=== PATIENT | male | born 1975 | race Caucasian/White ===

== ENCOUNTER 2018-09-05 20:48 | Emergency (ER) | payer OTHER ==
--- NOTE | 2018-09-05 20:58 | PDOC ---
Rapid Medical Evaluation Time Seen by Provider: 09/05/18 20:56 Medical Evaluation: Allergies Allergy/AdvReac Type Severity Reaction Status Date / Time No Known Allergies Allergy Verified 12/30/15 07:59 09/05/18 20:57 I have performed a brief in-person evaluation of this patient. The patient presents with a chief complaint of:Abscess L wrist from splinter Pertinent physical exam findings: erythema, induration and warmth radial aspect of L wrist with obvious mass I have ordered the following:x-ray The patient will proceed to the ED for further evaluation. Discharge Disposition - Diagnosis Abscess - Referrals Referrals: Crispin Powell MD [Primary Care Provider] - - Patient Instructions - Post Discharge Activity
[2018-09-05 21:01] VITALS: BP 137/98; PULSE 84; TEMP 97.6; BMI 30.3
[2018-09-05] MEDS ORDERED: CEPHALEXIN MONOHYDRATE 500 MG CAPSULE (UD) PO ONE (22:14)
[2018-09-05] MEDS ORDERED: SULFAMETHOXAZOLE/TRIMETHOPRIM 800MG/160MG D.S. TABLET PO ONE (22:14)
--- NOTE | 2018-09-05 22:15 | PDOC ---
History of Present Illness - General Chief Complaint: Abscess Boil Stated Complaint: ABSCESS BOIL Time Seen by Provider: 09/05/18 20:56 History Source: Patient Exam Limitations: No Limitations Past History - Travel Traveled outside of the country in the last 30 days: No Close contact w/someone who was outside of country & ill: No - Past Medical History Allergies/Adverse Reactions: Allergies Allergy/AdvReac Type Severity Reaction Status Date / Time No Known Allergies Allergy Verified 12/30/15 07:59 Home Medications: Ambulatory Orders Cephalexin Monohydrate [Keflex -] 500 mg PO BID #14 capsule 09/05/18 Sulfamethoxazole/Trimethoprim [Bactrim Ds -] 1 tab PO BID #14 tablet 09/05/18 COPD: No - Suicide/Smoking/Psychosocial Hx Smoking History: Unknown if ever smoked Information on smoking cessation initiated: No Hx Alcohol Use: No Drug/Substance Use Hx: No Review of Systems - Review of Systems Able to Perform ROS?: Yes Comments:: 09/05/18 23:32 CONSTITUTIONAL: Absent: fever, chills, diaphoresis, generalized weakness, malaise, loss of appetite HEENT: Absent: rhinorrhea, nasal congestion, throat pain, throat swelling, difficulty swallowing, mouth swelling, ear pain, eye pain, visual Changes CARDIOVASCULAR: Absent: chest pain, loss of consciousness, palpitations, irregular heart rate, peripheral edema RESPIRATORY: Absent: cough, shortness of breath, dyspnea with exertion, orthopnea, wheezing, stridor, hemoptysis GASTROINTESTINAL: Absent: abdominal pain, abdominal distension, nausea, vomiting, diarrhea, constipation, melena, hematochezia GENITOURINARY: Absent: dysuria, frequency, urgency, hesitancy, hematuria, flank pain, genital pain MUSCULOSKELETAL: Absent: myalgia, arthralgia, joint swelling SKIN: Present: swelling and redness to the L medial wrist. Absent: itching, pallor NEUROLOGIC: Absent: headache, focal weakness or paresthesias, dizziness, unsteady gait, seizure, mental status changes, bladder or bowel incontinence PSYCHIATRIC: Absent: anxiety, depression, suicidal or homicidal ideation, hallucinations. Is the patient limited [place] proficient: No *Physical Exam - Vital Signs Last Vital Signs Temp Pulse Resp BP Pulse Ox 97.6 F 84 20 137/98 96 09/05/18 20:57 09/05/18 20:57 09/05/18 20:57 09/05/18 20:57 09/05/18 20:57 - Physical Exam Comments: 09/05/18 23:32 GENERAL: Well developed, well nourished. Awake and alert. No acute distress. MUSCULOSKELETAL Normal range of motion at all joints. No bony deformities or tenderness. No CVA tenderness. EXTREMITIES: No cyanosis. No clubbing. No edema. No calf tenderness. SKIN: [id number] hard indurated area with no fluctuance and associated redness.Warm and dry. Normal capillary refill. No rashes. No jaundice. NEUROLOGICAL: Alert, awake, appropriate. Cranial nerves 2-12 intact. No deficits to light touch and temperature in face, upper extremities and lower extremities. No motor deficits in the in face, upper extremities and lower extremities. Normoreflexic in the upper and lower extremities. Normal speech. Toes are down- going bilaterally. Gait is normal without ataxia. PSYCHIATRIC: Cooperative. Good eye contact. Appropriate mood and affect. Moderate Sedation - Procedure Monitoring Vital Signs: Procedure Monitoring Vital Signs Temperature 97.6 F 09/05/18 20:57 Pulse Rate 84 09/05/18 20:57 Respiratory Rate 20 09/05/18 20:57 Blood Pressure 137/98 09/05/18 20:57 O2 Sat by Pulse Oximetry (%) 96 09/05/18 20:57 Medical Decision Making - Medical Decision Making 09/05/18 23:33 The patient is a 43-year-old male with no past medical history who presents to the ER with a abscess to his left medial wrist. Patient states he believes he got a splinter in there approximately 3-4 days ago. He believes he removed the splinter at the time of the incident, however he has noticed increased pain and swelling to the area. He has not tried taking any medication for his symptoms. He states that the area is painful. Patient is a left-hand dominant. A/P: Cellulitis Patient with a 4 cm x 2 cm x 3 cm hard area of induration with no fluctuance. X-ray obtained from [facility] show soft tissue swelling to the left wrist without gas or foreign body noted. Will start the patient on antibiotics and warm compresses to help bring the infection to a head. First dose of Bactrim and Keflex given in the ER. Instructed patient to return in 2 days for wound check. I discussed the physical exam findings, ancillary test results and final diagnoses with the patient. I answered all of the patient's questions. The patient was satisfied with the care received and felt comfortable with the discharge plan and treatment plan. The Patient agrees to follow up with the primary care physician/specialist within 24-72 hours. Return precautions were given. *DC/Admit/Observation/Transfer Diagnosis at time of Disposition: Abscess Cellulitis Qualifiers: Site of cellulitis: extremity Site of cellulitis of extremity: upper extremity Laterality: left Qualified Code(s): L03.114 - Cellulitis of left upper limb - Discharge Dispostion Disposition: HOME Condition at time of disposition: Stable Decision to Admit order: No - Prescriptions Prescriptions: Cephalexin Monohydrate [Keflex -] 500 mg PO BID #14 capsule Sulfamethoxazole/Trimethoprim [Bactrim Ds -] 1 tab PO BID #14 tablet - Referrals Referrals: Crispin Powell MD [Primary Care Provider] - - Patient Instructions Printed Discharge Instructions: DI for Skin Abscess Additional Instructions: You have cellulitis. This is a skin infection. Please take the Bactrim and Keflex twice a day for one week. Please take all the antibiotics even if you feel better. You may use warm water soaks to the area. Please do this approximately 4-5 times a day. Please avoid shaving the skin around the area of redness. You may take Tylenol or Motrin as needed for pain. Return in two days to have the wrist check. I anticipate it will need to be drained. Return to the emergency department if you have worsening redness, fevers, increasing pain, or have any changes in your symptoms. - Post Discharge Activity
[2018-09-05] MEDS ORDERED: SULFAMETHOXAZOLE/TRIMETHOPRIM 800MG/160MG D.S. TABLET ONE (22:20)
[2018-09-05] MEDS ORDERED: CEPHALEXIN MONOHYDRATE 500 MG CAPSULE (UD) ONE (22:21)
== END 2018-09-05 22:22 | disposition home or self-care (01) ==
LOC: JERFT 20:48
DX: L03.114 Cellulitis of left upper limb (principal)
CPT/HCPCS: 73110-TC-LT-FY; 73130-TC-LT-FY; 99281-25

== ENCOUNTER 2021-01-30 23:23 | Inpatient (IN) | payer OTHER ==
[2021-01-31] MEDS ORDERED: DEXAMETHASONE SOD PHOSPHATE 4 MG/1 ML VIAL IVPUSH ONE (00:14)
[2021-01-31] MEDS ORDERED: DEXAMETHASONE SOD PHOSPHATE 4 MG/1 ML VIAL ONE (00:40)
[2021-01-31 01:06] LABS: BASO % 0.1 % (0-2.0); EOS % 0.4 % (0-4.5); HEMOGLOBIN 14.3 GM/dL (11.7-16.9); LYMPH % 27.8 % (8-40); MCH 31.6 pg (25.7-33.7); MCHC 34.8 g/dl (32.0-35.9); MEAN CELL VOLUME 90.8 fl (80-96); MEAN PLT VOLUME 8.2 fl (7.5-11.1); MONO % 8.5 % (3.8-10.2); NEUT % 63.2 % (42.8-82.8); PLATELET COUNT 163 10^3/uL (134-434); RBC 4.52 M/mm3 (4.00-5.60); RDW 14.8 % (11.9-15.9); WHITE BLOOD COUNT 6.2 K/mm3 (4.0-10.0)
[2021-01-31 01:15] LABS: INR 1.17 (0.83-1.09); PROTHROMBIN TIME (PATIENT) 14.1 SEC (9.7-13.0)
[2021-01-31 01:17] LABS: ACTIVATED PTT 31.9 SECONDS (25.2-36.5)
[2021-01-31 01:23] LABS: CHLORIDE 102 mmol/L (98-107); SODIUM 136 mmol/L (136-145)
[2021-01-31 01:25] LABS: CALCIUM 7.9 mg/dL (8.5-10.1)
[2021-01-31 01:26] LABS: ALBUMIN 3.7 g/dl (3.4-5.0); ANION GAP 6 MMOL/L (8-16); BLOOD UREA NITROGEN 13.4 mg/dL (7-18); CO2 28 mmol/L (21-32); GLUCOSE,RANDOM 106 mg/dL (74-106)
[2021-01-31 01:28] LABS: BILIRUBIN,DIRECT 0.3 mg/dL (0.0-0.2)
[2021-01-31 01:29] LABS: SGOT/AST 147 U/L (15-37); SGPT/ALT 229 U/L (13-61)
[2021-01-31 01:30] LABS: BILIRUBIN,TOTAL 0.8 mg/dL (0.2-1); LDH 365 U/L (87-246)
[2021-01-31 01:31] LABS: TOT PROT 7.8 g/dl (6.4-8.2)
[2021-01-31 01:32] LABS: ALK PHOS 97 U/L (45-117)
[2021-01-31 06:45] LABS: EPI CELLS 10 /uL (0-25.1); HYALINE CASTS 1 /uL (0-3.1); PH,URINE 5.5 (5.0-8.0); URINE APPEARANCE CLEAR; URINE BACTERIA 9 /uL (0-1359); URINE BILIRUBIN 1+ (NEGATIVE); URINE COLOR DK YELLOW; URINE GLUCOSE (UA) NEGATIVE (NEGATIVE); URINE KETONE TRACE (NEGATIVE); URINE LEUK ESTERASE NEGATIVE (NEGATIVE); URINE NITRITE NEGATIVE (NEGATIVE); URINE PROTEIN 1+ (NEGATIVE); URINE RBC 4 /uL (0-23.9); URINE WBC 12 /uL (0-25.8)
[2021-01-31 06:56] LABS: HEMATOCRIT 41.4 % (35.4-49); HEMOGLOBIN 14.5 GM/dL (11.7-16.9); MCH 31.9 pg (25.7-33.7); MEAN CELL VOLUME 91.3 fl (80-96); MEAN PLT VOLUME 8.4 fl (7.5-11.1); PLATELET COUNT 169 10^3/uL (134-434); RBC 4.54 M/mm3 (4.00-5.60); RDW 14.7 % (11.9-15.9); WHITE BLOOD COUNT 5.3 K/mm3 (4.0-10.0)
[2021-01-31 06:56] LABS: VENOUS BASE EXCESS -12.8 mmol/L (-2-2); VENOUS O2 SATURATION 94.2 % (70-80); VENOUS PCO2 64.3 mmHg (38-52)
[2021-01-31 06:58] LABS: VENOUS PH 7.07 (7.310-7.410)
[2021-01-31 07:21] LABS: ALBUMIN 3.6 g/dl (3.4-5.0); CALCIUM 8.1 mg/dL (8.5-10.1)
[2021-01-31 07:22] LABS: BLOOD UREA NITROGEN 14.4 mg/dL (7-18); MAGNESIUM 2.6 mg/dL (1.8-2.4)
[2021-01-31 07:25] LABS: CREATININE 0.9 mg/dL (0.55-1.3); PHOSPHOROUS 3.8 mg/dL (2.5-4.9)
[2021-01-31 07:26] LABS: BILIRUBIN,TOTAL 0.8 mg/dL (0.2-1); TOT PROT 7.9 g/dl (6.4-8.2)
[2021-01-31] MEDS ORDERED: FAMOTIDINE 20 MG TABLET ONE (13:59)
[2021-01-31] MEDS ORDERED: DEXAMETHASONE SOD PHOSPHATE 10 MG/1 ML VIAL ONE (13:59)
[2021-01-31] MEDS ORDERED: ASCORBIC ACID 500 MG TABLET (FP) ONE (13:59)
[2021-01-31] MEDS ORDERED: CHOLECALCIFEROL (VIT D3) 1,000 UNIT (25 MCG) TABLET ONE (14:00)
[2021-01-31] MEDS ORDERED: ENOXAPARIN NA (PORCINE) 40 MG/0.4 ML DISP.SYRIN SQ ONE (14:00)
[2021-01-31] MEDS: FAMOTIDINE 20 MG TABLET PO SCH (14:01)
[2021-01-31] MEDS: ASCORBIC ACID 250 MG TABLET (FP) PO SCH ×2 (14:01→22:55)
[2021-01-31] MEDS: ENOXAPARIN NA (PORCINE) 40 MG/0.4 ML DISP.SYRIN SQ SCH (14:01)
[2021-01-31] MEDS: DEXAMETHASONE SOD PHOSPHATE 10 MG/1 ML VIAL IVPUSH SCH (14:01)
[2021-01-31] MEDS: CHOLECALCIFEROL (VIT D3) 5000 UNITS (125 MCG) CAP PO SCH (14:02)
[2021-01-31] MEDS ORDERED: REMDESIVIR 200 MG in SODIUM CHLORIDE 250 ML IVPB ONE (15:00)
[2021-01-31 22:44] VITALS: BMI 29.8
[2021-01-31] MEDS: ALBUTEROL SO4 HFA INHALER IH SCH (22:49)
[2021-01-31] MEDS: BUDESONIDE/FORMETEROL FUMARATE 160/4.5 mcg INHALER IH SCH (22:58)
[2021-01-31] MEDS: guaiFENesin/D-METHORPHAN HB 10 ML UNIT-DOSE CUPS PO PRN (23:05)
[2021-02-01] MEDS ORDERED: PT OWN MED DRAWER 7, Y5N ONE (10:09)
[2021-02-01] MEDS: guaiFENesin/D-METHORPHAN HB 10 ML UNIT-DOSE CUPS PO PRN (10:19)
[2021-02-01] MEDS: ALBUTEROL SO4 HFA INHALER IH SCH ×4 (10:19→20:00)
[2021-02-01] MEDS: FAMOTIDINE 20 MG TABLET PO SCH (10:20)
[2021-02-01] MEDS: CHOLECALCIFEROL (VIT D3) 5000 UNITS (125 MCG) CAP PO SCH (10:20)
[2021-02-01] MEDS: ASCORBIC ACID 250 MG TABLET (FP) PO SCH ×2 (10:20→21:22)
[2021-02-01] MEDS: DEXAMETHASONE SOD PHOSPHATE 10 MG/1 ML VIAL IVPUSH SCH (10:21)
[2021-02-01] MEDS: ENOXAPARIN NA (PORCINE) 40 MG/0.4 ML DISP.SYRIN SQ SCH (10:21)
[2021-02-01 11:26] LABS: BASO % 0.1 % (0-2.0); EOS % 0.1 % (0-4.5); HEMATOCRIT 42.8 % (35.4-49); HEMOGLOBIN 14.9 GM/dL (11.7-16.9); LYMPH % 23.1 % (8-40); MCH 31.7 pg (25.7-33.7); MCHC 34.7 g/dl (32.0-35.9); MEAN CELL VOLUME 91.1 fl (80-96); MEAN PLT VOLUME 8.5 fl (7.5-11.1); NEUT % 70.7 % (42.8-82.8); PLATELET COUNT 227 10^3/uL (134-434); RDW 14.6 % (11.9-15.9); WHITE BLOOD COUNT 12.2 K/mm3 (4.0-10.0)
[2021-02-01] MEDS: BUDESONIDE/FORMETEROL FUMARATE 160/4.5 mcg INHALER IH SCH ×2 (11:49→21:18)
[2021-02-01 11:57] LABS: ALBUMIN 3.8 g/dl (3.4-5.0); BLOOD UREA NITROGEN 16.9 mg/dL (7-18); CALCIUM 8.7 mg/dL (8.5-10.1)
[2021-02-01 11:58] LABS: MAGNESIUM 2.5 mg/dL (1.8-2.4)
[2021-02-01 11:59] LABS: CREATININE 0.9 mg/dL (0.55-1.3)
[2021-02-01 12:00] LABS: BILIRUBIN,DIRECT 0.3 mg/dL (0.0-0.2); PHOSPHOROUS 3.6 mg/dL (2.5-4.9)
[2021-02-01 12:01] LABS: BILIRUBIN,TOTAL 0.7 mg/dL (0.2-1)
[2021-02-01] MEDS ORDERED: ACETAMINOPHEN 325 MG TABLET (FP) PO PRN (12:10)
[2021-02-01 12:11] LABS: ERYTHROCYTE SEDIMENTATION RATE 75 mm/hr (0-10)
[2021-02-01] MEDS: REMDESIVIR 100 MG in SODIUM CHLORIDE 250 ML IVPB SCH (15:09)
[2021-02-01] MEDS: guaiFENesin/CODEINE 10 ML UNIT-DOSE CUPS PO PRN (15:09)
[2021-02-02] MEDS ORDERED: PT OWN MED DRAWER 7, Y5N ONE (10:30)
[2021-02-02] MEDS: ASCORBIC ACID 250 MG TABLET (FP) PO SCH ×2 (10:33→21:07)
[2021-02-02] MEDS: ENOXAPARIN NA (PORCINE) 40 MG/0.4 ML DISP.SYRIN SQ SCH (10:33)
[2021-02-02] MEDS: FAMOTIDINE 20 MG TABLET PO SCH (10:34)
[2021-02-02] MEDS: CHOLECALCIFEROL (VIT D3) 5000 UNITS (125 MCG) CAP PO SCH (10:34)
[2021-02-02] MEDS: BUDESONIDE/FORMETEROL FUMARATE 160/4.5 mcg INHALER IH SCH ×2 (10:35→21:03)
[2021-02-02] MEDS: ALBUTEROL SO4 HFA INHALER IH SCH ×4 (10:35→21:03)
[2021-02-02 10:36] LABS: BASO % 0.1 % (0-2.0); EOS % 0.1 % (0-4.5); HEMATOCRIT 41.3 % (35.4-49); HEMOGLOBIN 14.3 GM/dL (11.7-16.9); LYMPH % 18.6 % (8-40); MCH 31.5 pg (25.7-33.7); MCHC 34.6 g/dl (32.0-35.9); MEAN CELL VOLUME 91.1 fl (80-96); MEAN PLT VOLUME 8.4 fl (7.5-11.1); MONO % 5.1 % (3.8-10.2); NEUT % 76.1 % (42.8-82.8); PLATELET COUNT 234 10^3/uL (134-434); RBC 4.53 M/mm3 (4.00-5.60); RDW 14.3 % (11.9-15.9); WHITE BLOOD COUNT 9.4 K/mm3 (4.0-10.0)
[2021-02-02] MEDS: DEXAMETHASONE SOD PHOSPHATE 10 MG/1 ML VIAL IVPUSH SCH (10:49)
[2021-02-02 10:57] LABS: ALBUMIN 3.3 g/dl (3.4-5.0); CALCIUM 8.1 mg/dL (8.5-10.1); MAGNESIUM 2.5 mg/dL (1.8-2.4)
[2021-02-02] MEDS: guaiFENesin/CODEINE 10 ML UNIT-DOSE CUPS PO PRN ×2 (11:00→21:01)
[2021-02-02 11:01] LABS: PHOSPHOROUS 2.9 mg/dL (2.5-4.9)
[2021-02-02 11:02] LABS: BILIRUBIN,TOTAL 0.6 mg/dL (0.2-1)
[2021-02-02 12:31] LABS: ERYTHROCYTE SEDIMENTATION RATE 44 mm/hr (0-10)
[2021-02-02] MEDS: REMDESIVIR 100 MG in SODIUM CHLORIDE 250 ML IVPB SCH (15:34)
[2021-02-03] MEDS: ALBUTEROL SO4 HFA INHALER IH SCH ×4 (08:45→23:09)
[2021-02-03 09:55] LABS: BASO % 0.1 % (0-2.0); EOS % 0.2 % (0-4.5); HEMATOCRIT 39.1 % (35.4-49); HEMOGLOBIN 13.4 GM/dL (11.7-16.9); MCH 31.1 pg (25.7-33.7); MCHC 34.4 g/dl (32.0-35.9); MEAN CELL VOLUME 90.5 fl (80-96); MEAN PLT VOLUME 7.7 fl (7.5-11.1); MONO % 7.5 % (3.8-10.2); NEUT % 71.2 % (42.8-82.8); PLATELET COUNT 261 10^3/uL (134-434); RBC 4.32 M/mm3 (4.00-5.60); RDW 14.5 % (11.9-15.9); WHITE BLOOD COUNT 9.8 K/mm3 (4.0-10.0)
[2021-02-03 10:19] LABS: CALCIUM 8.2 mg/dL (8.5-10.1)
[2021-02-03 10:20] LABS: ALBUMIN 3.2 g/dl (3.4-5.0); MAGNESIUM 2.7 mg/dL (1.8-2.4)
[2021-02-03 10:23] LABS: PHOSPHOROUS 3.4 mg/dL (2.5-4.9)
[2021-02-03 10:24] LABS: BILIRUBIN,TOTAL 0.6 mg/dL (0.2-1); TOT PROT 7.8 g/dl (6.4-8.2)
[2021-02-03 10:25] LABS: BLOOD UREA NITROGEN 15.3 mg/dL (7-18)
[2021-02-03] MEDS ORDERED: PT OWN MED DRAWER 7, Y5N ONE ×3 (10:33→20:53)
[2021-02-03] MEDS: guaiFENesin/CODEINE 10 ML UNIT-DOSE CUPS PO PRN ×3 (10:43→23:10)
[2021-02-03] MEDS: ENOXAPARIN NA (PORCINE) 40 MG/0.4 ML DISP.SYRIN SQ SCH (10:43)
[2021-02-03] MEDS: FAMOTIDINE 20 MG TABLET PO SCH (10:43)
[2021-02-03] MEDS: ASCORBIC ACID 250 MG TABLET (FP) PO SCH ×2 (10:43→23:19)
[2021-02-03] MEDS: CHOLECALCIFEROL (VIT D3) 5000 UNITS (125 MCG) CAP PO SCH (10:43)
[2021-02-03] MEDS: DEXAMETHASONE SOD PHOSPHATE 10 MG/1 ML VIAL IVPUSH SCH (10:44)
[2021-02-03] MEDS: BUDESONIDE/FORMETEROL FUMARATE 160/4.5 mcg INHALER IH SCH ×2 (10:44→23:09)
[2021-02-03 10:47] LABS: ERYTHROCYTE SEDIMENTATION RATE 71 mm/hr (0-10)
[2021-02-03] MEDS: REMDESIVIR 100 MG in SODIUM CHLORIDE 250 ML IVPB SCH (16:20)
[2021-02-04] MEDS ORDERED: PT OWN MED DRAWER 7, Y5N ONE ×3 (01:07→20:39)
[2021-02-04] MEDS: guaiFENesin/CODEINE 10 ML UNIT-DOSE CUPS PO PRN (05:42)
[2021-02-04 08:30] LABS: BASO % 0.1 % (0-2.0); EOS % 0.3 % (0-4.5); HEMATOCRIT 38.2 % (35.4-49); HEMOGLOBIN 13.1 GM/dL (11.7-16.9); LYMPH % 20.4 % (8-40); MCH 31.1 pg (25.7-33.7); MCHC 34.4 g/dl (32.0-35.9); MEAN CELL VOLUME 90.6 fl (80-96); MEAN PLT VOLUME 7.6 fl (7.5-11.1); MONO % 7.3 % (3.8-10.2); NEUT % 71.9 % (42.8-82.8); PLATELET COUNT 301 10^3/uL (134-434); RBC 4.21 M/mm3 (4.00-5.60); RDW 14.2 % (11.9-15.9); WHITE BLOOD COUNT 8.4 K/mm3 (4.0-10.0)
[2021-02-04] MEDS: ALBUTEROL SO4 HFA INHALER IH SCH ×4 (08:30→20:01)
[2021-02-04 08:59] LABS: CALCIUM 8.3 mg/dL (8.5-10.1)
[2021-02-04 09:00] LABS: BLOOD UREA NITROGEN 15.4 mg/dL (7-18); MAGNESIUM 2.6 mg/dL (1.8-2.4)
[2021-02-04 09:03] LABS: CREATININE 0.9 mg/dL (0.55-1.3)
[2021-02-04 09:04] LABS: BILIRUBIN,TOTAL 0.7 mg/dL (0.2-1); TOT PROT 6.6 g/dl (6.4-8.2)
[2021-02-04] MEDS: DEXAMETHASONE SOD PHOSPHATE 10 MG/1 ML VIAL IVPUSH SCH (10:29)
[2021-02-04] MEDS: ENOXAPARIN NA (PORCINE) 40 MG/0.4 ML DISP.SYRIN SQ SCH (10:29)
[2021-02-04] MEDS: FAMOTIDINE 20 MG TABLET PO SCH (10:30)
[2021-02-04] MEDS: BUDESONIDE/FORMETEROL FUMARATE 160/4.5 mcg INHALER IH SCH ×2 (10:30→21:31)
[2021-02-04] MEDS: ASCORBIC ACID 250 MG TABLET (FP) PO SCH ×2 (10:36→21:30)
[2021-02-04] MEDS: CHOLECALCIFEROL (VIT D3) 5000 UNITS (125 MCG) CAP PO SCH (10:37)
[2021-02-04] MEDS: REMDESIVIR 100 MG in SODIUM CHLORIDE 250 ML IVPB SCH (14:43)
[2021-02-05] MEDS: ALBUTEROL SO4 HFA INHALER IH SCH ×4 (07:53→21:44)
[2021-02-05] MEDS ORDERED: PT OWN MED DRAWER 7, Y5N ONE ×3 (09:57→21:41)
[2021-02-05] MEDS: DEXAMETHASONE SOD PHOSPHATE 10 MG/1 ML VIAL IVPUSH SCH (09:57)
[2021-02-05] MEDS: ENOXAPARIN NA (PORCINE) 40 MG/0.4 ML DISP.SYRIN SQ SCH (09:57)
[2021-02-05] MEDS: FAMOTIDINE 20 MG TABLET PO SCH (09:58)
[2021-02-05] MEDS: CHOLECALCIFEROL (VIT D3) 5000 UNITS (125 MCG) CAP PO SCH (09:58)
[2021-02-05] MEDS: ASCORBIC ACID 250 MG TABLET (FP) PO SCH ×2 (09:58→21:44)
[2021-02-05] MEDS: BUDESONIDE/FORMETEROL FUMARATE 160/4.5 mcg INHALER IH SCH ×2 (09:58→21:44)
[2021-02-06] MEDS: ALBUTEROL SO4 HFA INHALER IH SCH ×4 (08:15→20:30)
[2021-02-06] MEDS ORDERED: PT OWN MED DRAWER 7, Y5N ONE ×4 (11:00→20:36)
[2021-02-06] MEDS: ENOXAPARIN NA (PORCINE) 40 MG/0.4 ML DISP.SYRIN SQ SCH (11:01)
[2021-02-06] MEDS: DEXAMETHASONE SOD PHOSPHATE 10 MG/1 ML VIAL IVPUSH SCH (11:01)
[2021-02-06] MEDS: BUDESONIDE/FORMETEROL FUMARATE 160/4.5 mcg INHALER IH SCH ×2 (11:01→21:25)
[2021-02-06] MEDS: FAMOTIDINE 20 MG TABLET PO SCH (11:01)
[2021-02-06] MEDS: ASCORBIC ACID 250 MG TABLET (FP) PO SCH ×2 (11:02→21:24)
[2021-02-06] MEDS: CHOLECALCIFEROL (VIT D3) 5000 UNITS (125 MCG) CAP PO SCH (11:02)
[2021-02-06 15:53] LABS: HEMATOCRIT 40.9 % (35.4-49); HEMOGLOBIN 14.3 GM/dL (11.7-16.9); MCH 32.1 pg (25.7-33.7); MCHC 34.9 g/dl (32.0-35.9); MEAN CELL VOLUME 92.1 fl (80-96); MEAN PLT VOLUME 8.3 fl (7.5-11.1); PLATELET COUNT 421 10^3/uL (134-434); RBC 4.45 M/mm3 (4.00-5.60); RDW 14.2 % (11.9-15.9); WHITE BLOOD COUNT 9.8 K/mm3 (4.0-10.0)
[2021-02-06 16:04] LABS: CHLORIDE 99 mmol/L (98-107); SODIUM 133 mmol/L (136-145)
[2021-02-06 16:06] LABS: CALCIUM 8.4 mg/dL (8.5-10.1)
[2021-02-06 16:07] LABS: ALBUMIN 3.1 g/dl (3.4-5.0); ANION GAP 11 MMOL/L (8-16); BLOOD UREA NITROGEN 14.1 mg/dL (7-18); CO2 23 mmol/L (21-32); MAGNESIUM 2.5 mg/dL (1.8-2.4)
[2021-02-06 16:10] LABS: CREATININE 0.9 mg/dL (0.55-1.3); SGOT/AST 90 U/L (15-37); SGPT/ALT 120 U/L (13-61)
[2021-02-06 16:12] LABS: BILIRUBIN,TOTAL 0.4 mg/dL (0.2-1); TOT PROT 7.1 g/dl (6.4-8.2)
[2021-02-06 16:18] LABS: ALK PHOS 127 U/L (45-117); GLUCOSE,RANDOM 418 mg/dL (74-106)
[2021-02-06 17:53] LABS: CHLORIDE 98 mmol/L (98-107); SODIUM 132 mmol/L (136-145)
[2021-02-06 17:55] LABS: CALCIUM 8.8 mg/dL (8.5-10.1)
[2021-02-06 17:56] LABS: ALBUMIN 3.2 g/dl (3.4-5.0); ANION GAP 10 MMOL/L (8-16); BLOOD UREA NITROGEN 14.9 mg/dL (7-18); CO2 24 mmol/L (21-32)
[2021-02-06 17:59] LABS: CREATININE 0.9 mg/dL (0.55-1.3); SGOT/AST 99 U/L (15-37); SGPT/ALT 130 U/L (13-61)
[2021-02-06 18:01] LABS: BILIRUBIN,TOTAL 0.4 mg/dL (0.2-1); TOT PROT 7.4 g/dl (6.4-8.2)
[2021-02-06 18:02] LABS: ALK PHOS 133 U/L (45-117)
[2021-02-06 18:08] LABS: GLUCOSE,RANDOM 421 mg/dL (74-106)
[2021-02-06] MEDS ORDERED: INSULIN (NOVOLOG) ASPART 100 UNITS/ML 10ML VIAL SQ ONE (18:38)
[2021-02-06] MEDS: INSULIN SLIDING SCALE (NOVOLOG) 1 VIAL SQ SCH (21:17)
[2021-02-07] MEDS: INSULIN SLIDING SCALE (NOVOLOG) 1 VIAL SQ SCH ×4 (06:08→21:19)
[2021-02-07] MEDS: ALBUTEROL SO4 HFA INHALER IH SCH ×4 (08:12→20:25)
[2021-02-07] MEDS ORDERED: PT OWN MED DRAWER 7, Y5N ONE ×3 (09:24→20:49)
[2021-02-07] MEDS: FAMOTIDINE 20 MG TABLET PO SCH (10:13)
[2021-02-07] MEDS: CHOLECALCIFEROL (VIT D3) 5000 UNITS (125 MCG) CAP PO SCH (10:13)
[2021-02-07] MEDS: ENOXAPARIN NA (PORCINE) 40 MG/0.4 ML DISP.SYRIN SQ SCH (10:13)
[2021-02-07] MEDS: DEXAMETHASONE 4 MG TABLET (FP) PO SCH (10:13)
[2021-02-07] MEDS: BUDESONIDE/FORMETEROL FUMARATE 160/4.5 mcg INHALER IH SCH ×2 (10:17→21:19)
[2021-02-07] MEDS: ASCORBIC ACID 250 MG TABLET (FP) PO SCH ×2 (10:17→21:18)
[2021-02-07] MEDS ORDERED: INSULIN (NOVOLOG) ASPART 100 UNITS/ML 10ML VIAL SQ ONE (19:07)
[2021-02-07 20:39] LABS: CHLORIDE 99 mmol/L (98-107); SODIUM 134 mmol/L (136-145)
[2021-02-07 20:42] LABS: ALBUMIN 3.2 g/dl (3.4-5.0); CALCIUM 8.4 mg/dL (8.5-10.1)
[2021-02-07 20:43] LABS: ANION GAP 10 MMOL/L (8-16); BLOOD UREA NITROGEN 17.7 mg/dL (7-18); CO2 25 mmol/L (21-32)
[2021-02-07 20:45] LABS: SGPT/ALT 170 U/L (13-61)
[2021-02-07 20:46] LABS: CREATININE 1.1 mg/dL (0.55-1.3); SGOT/AST 108 U/L (15-37)
[2021-02-07 20:47] LABS: BILIRUBIN,TOTAL 0.5 mg/dL (0.2-1); TOT PROT 7.4 g/dl (6.4-8.2)
[2021-02-07 20:48] LABS: ALK PHOS 157 U/L (45-117)
[2021-02-07 20:49] LABS: GLUCOSE,RANDOM 457 mg/dL (74-106)
[2021-02-07] MEDS ORDERED: INSULIN (LEVEMIR) 100 UNITS/ML UNITS SQ SCH (22:00)
[2021-02-08] MEDS: INSULIN SLIDING SCALE (NOVOLOG) 1 VIAL SQ SCH ×4 (06:04→21:51)
[2021-02-08 09:18] LABS: BASO % 0.4 % (0-2.0); EOS % 1.5 % (0-4.5); HEMOGLOBIN 14.4 GM/dL (11.7-16.9); LYMPH % 20.1 % (8-40); MCH 31.5 pg (25.7-33.7); MEAN CELL VOLUME 89.8 fl (80-96); MEAN PLT VOLUME 7.6 fl (7.5-11.1); MONO % 6.9 % (3.8-10.2); NEUT % 71.1 % (42.8-82.8); PLATELET COUNT 420 10^3/uL (134-434); RBC 4.57 M/mm3 (4.00-5.60); RDW 14.3 % (11.9-15.9); WHITE BLOOD COUNT 10.2 K/mm3 (4.0-10.0)
[2021-02-08 09:52] LABS: BLOOD UREA NITROGEN 13.4 mg/dL (7-18)
[2021-02-08 09:53] LABS: CALCIUM 8.7 mg/dL (8.5-10.1)
[2021-02-08 09:55] LABS: CREATININE 0.7 mg/dL (0.55-1.3)
[2021-02-08 09:56] LABS: BILIRUBIN,TOTAL 0.5 mg/dL (0.2-1)
[2021-02-08] MEDS ORDERED: PT OWN MED DRAWER 7, Y5N ONE (10:35)
[2021-02-08] MEDS: ASCORBIC ACID 250 MG TABLET (FP) PO SCH ×2 (10:36→21:44)
[2021-02-08] MEDS: CHOLECALCIFEROL (VIT D3) 5000 UNITS (125 MCG) CAP PO SCH (10:36)
[2021-02-08] MEDS: DEXAMETHASONE 4 MG TABLET (FP) PO SCH (10:36)
[2021-02-08] MEDS: FAMOTIDINE 20 MG TABLET PO SCH (10:36)
[2021-02-08] MEDS: ENOXAPARIN NA (PORCINE) 40 MG/0.4 ML DISP.SYRIN SQ SCH (10:37)
[2021-02-08] MEDS: ALBUTEROL SO4 HFA INHALER IH SCH ×4 (10:37→21:44)
[2021-02-08] MEDS: BUDESONIDE/FORMETEROL FUMARATE 160/4.5 mcg INHALER IH SCH ×2 (10:37→21:44)
[2021-02-08 21:35] LABS: GLUCOSE,RANDOM 495 mg/dL (74-106)
[2021-02-09] MEDS: INSULIN SLIDING SCALE (NOVOLOG) 1 VIAL SQ SCH ×2 (06:13→12:04)
[2021-02-09] MEDS: ALBUTEROL SO4 HFA INHALER IH SCH ×2 (09:11→12:01)
[2021-02-09] MEDS ORDERED: PT OWN MED DRAWER 7, Y5N ONE (09:15)
[2021-02-09] MEDS: ASCORBIC ACID 250 MG TABLET (FP) PO SCH (09:17)
[2021-02-09] MEDS: CHOLECALCIFEROL (VIT D3) 5000 UNITS (125 MCG) CAP PO SCH (09:17)
[2021-02-09] MEDS: FAMOTIDINE 20 MG TABLET PO SCH (09:17)
[2021-02-09] MEDS: ENOXAPARIN NA (PORCINE) 40 MG/0.4 ML DISP.SYRIN SQ SCH (09:17)
[2021-02-09] MEDS: BUDESONIDE/FORMETEROL FUMARATE 160/4.5 mcg INHALER IH SCH (09:17)
[2021-02-09] MEDS ORDERED: DEXAMETHASONE 4 MG TABLET (FP) PO SCH ×2 (10:00)
[2021-02-09 16:20] VITALS: BP 138/76; PULSE 66; TEMP 98.2
== END 2021-02-09 17:05 | disposition home or self-care (01) | DRG 137 ==
LOC: JER 23:23 → JERBED 01-31 01:38 → J8W 01-31 22:21
PROVIDERS: ADMIT Internal Medicine; ATTEND Internal Medicine
PROC: XW033E5 Introduction of Remdesivir Anti-infective into Peripheral Vein, Percutaneous Approach, New Technology Group 5 (ICD-10-PCS; principal; 2021-01-31)
DX: U07.1 COVID-19 (principal); J12.82 Pneumonia due to coronavirus disease 2019; R09.02 Hypoxemia; M62.82 Rhabdomyolysis; R73.9 Hyperglycemia, unspecified; E66.9 Obesity, unspecified; Z68.29 Body mass index [BMI] 29.0-29.9, adult; I45.10 Unspecified right bundle-branch block; R94.5 Abnormal results of liver function studies
CPT/HCPCS: 36415; 71045-TC-FY; 80048; 80053; 80076; 81003; 82248; 82550; 82553; 82728; 82803; 82947; 82962; 83036; 83605; 83615; 83735; 84100; 84484; 85025; 85027; 85379; 85610; 85651; 85730; 86140; 86769; 87040; 87086; 87804; 93005; 93010; 94010; 94761; 99285-25; C9399; C9803; J1100; U0003; U0005

== ENCOUNTER 2022-08-05 13:14 | Emergency (ER) | payer OTHER ==
[2022-08-05 13:18] VITALS: BP 153/98; PULSE 77; RESP 18; TEMP 9834; BMI 30.3
[2022-08-05] MEDS ORDERED: KETOROLAC TROMETHAMINE 30 MG/1 ML VIAL ONE (14:16)
[2022-08-05] MEDS ORDERED: ACETAMINOPHEN 500 MG TABLET (FP) ONE (14:16)
[2022-08-05] MEDS ORDERED: CYCLOBENZAPRINE HCL 10 MG TABLET (FP) ONE (14:16)
[2022-08-05] MEDS ORDERED: ACETAMINOPHEN 500 MG TABLET (FP) PO ONE (14:17)
[2022-08-05] MEDS ORDERED: LIDOCAINE 5% TOPICAL PATCH TP ONE (14:17)
[2022-08-05] MEDS ORDERED: CYCLOBENZAPRINE HCL 10 MG TABLET (FP) PO ONE (14:17)
[2022-08-05] MEDS ORDERED: KETOROLAC TROMETHAMINE 30 MG/1 ML VIAL IM ONE (14:17)
[2022-08-05] MEDS ORDERED: LIDOCAINE 5% TOPICAL PATCH ONE (14:21)
[2022-08-05] MEDS ORDERED: LIDOCAINE PATCH REMOVAL MC ONE (22:00)
== END 2022-08-05 15:55 | disposition home or self-care (01) ==
LOC: JERFT 13:14
PROC: 3E023GC Introduction of Other Therapeutic Substance into Muscle, Percutaneous Approach (ICD-10-PCS; principal; 2022-08-05)
DX: M25.512 Pain in left shoulder (principal)
CPT/HCPCS: 73030-TC-LT-FY; 73060-TC-LT-FY; 73110-TC-LT-FY; 99284-25

== ENCOUNTER 2023-03-14 07:22 | Emergency (ER) | payer OTHER ==
[2023-03-14 07:31] VITALS: TEMP 98.8; BMI 29.4
[2023-03-14] MEDS ORDERED: FAMOTIDINE 20 MG/50 ML IVPB 20 MG/50 ML MG IVPB ONE ×2 (07:47→07:51)
[2023-03-14] MEDS ORDERED: ONDANSETRON 4 MG/2 ML VIAL IVPUSH ONE (07:47)
[2023-03-14] MEDS ORDERED: SODIUM CHLORIDE 1,000 ML IV STA ×2 (07:47→09:07)
[2023-03-14] MEDS ORDERED: MAG HYDROX/AL HYDROX/SIMETH 30 ML UNIT-DOSE CUP PO ONE (07:48)
[2023-03-14] MEDS ORDERED: MAG HYDROX/AL HYDROX/SIMETH 30 ML UNIT-DOSE CUP ONE (07:51)
[2023-03-14] MEDS ORDERED: ONDANSETRON 4 MG/2 ML VIAL ONE (07:51)
[2023-03-14 08:41] LABS: ALBUMIN 3.8 g/dl (3.4-5.0); CALCIUM 8.5 mg/dL (8.5-10.1)
[2023-03-14 08:42] LABS: MAGNESIUM 2.2 mg/dL (1.8-2.4)
[2023-03-14 08:44] LABS: BASO % 0.1 % (0-2.0); EOS % 0.1 % (0-4.5); HEMOGLOBIN 14.5 GM/dL (11.7-16.9); LYMPH % 20.6 % (8-40); MCH 30.9 pg (25.7-33.7); MCHC 34.5 g/dl (32.0-35.9); MEAN CELL VOLUME 89.5 fl (80-96); MEAN PLT VOLUME 8.8 fl (7.5-11.1); MONO % 8.9 % (3.8-10.2); NEUT % 70.3 % (42.8-82.8); PLATELET COUNT 131 10^3/uL (134-434); RBC 4.69 M/mm3 (4.00-5.60); RDW 13.9 % (11.9-15.9); WHITE BLOOD COUNT 5.5 K/mm3 (4.0-10.0)
[2023-03-14 08:46] LABS: BILIRUBIN,TOTAL 1.2 mg/dL (0.2-1)
[2023-03-14 09:34] LABS: EPI CELLS 5 /uL (0-25.1); HYALINE CASTS 0 /uL (0-3.1); URINE APPEARANCE CLEAR; URINE BACTERIA 4 /uL (0-1359); URINE BILIRUBIN NEGATIVE (NEGATIVE); URINE COLOR DK YELLOW; URINE GLUCOSE (UA) NEGATIVE (NEGATIVE); URINE KETONE 3+ (NEGATIVE); URINE LEUK ESTERASE NEGATIVE (NEGATIVE); URINE NITRITE NEGATIVE (NEGATIVE); URINE PROTEIN 1+ (NEGATIVE); URINE RBC 10 /uL (0-23.9); URINE WBC 12 /uL (0-25.8)
[2023-03-14 10:22] VITALS: BP 131/81; PULSE 80; RESP 16
== END 2023-03-14 11:28 | disposition home or self-care (01) ==
LOC: JERFT 07:22 → JER 07:22 → JERFT 11:28
PROC: 3E033GC Introduction of Other Therapeutic Substance into Peripheral Vein, Percutaneous Approach (ICD-10-PCS; principal; 2023-03-14)
PROC: 3E033GC Introduction of Other Therapeutic Substance into Peripheral Vein, Percutaneous Approach (ICD-10-PCS; 2023-03-14)
PROC: 3E0337Z Introduction of Electrolytic and Water Balance Substance into Peripheral Vein, Percutaneous Approach (ICD-10-PCS; 2023-03-14)
DX: R50.9 Fever, unspecified (principal); R11.2 Nausea with vomiting, unspecified; R43.9 Unspecified disturbances of smell and taste; R42 Dizziness and giddiness; E11.65 Type 2 diabetes mellitus with hyperglycemia; Z20.822 Contact with and (suspected) exposure to COVID-19
CPT/HCPCS: 0241U-QW; 36415; 76705-TC; 80053; 81003; 83036; 83690; 83735; 85025; 87086; 93005; 93010; 99285-25